=== PATIENT | female | born 1985 | race Caucasian/White ===

== ENCOUNTER 2022-06-21 09:47 | Emergency (ER) | payer MEDICAID ==
[~2022-06-21] VITALS: Ht 162.6 cm; Wt 99.8 kg
[2022-06-21 10:11] VITALS: BP 147/78
--- NOTE | 2022-06-21 10:32 | NUR ---
36/F WALKED IN C/O B/L FOOT PAIN ONSET 1 WK. PT REPORTS PINS AND NEEDLE TO TOES. DENIES HX DM. DENIES INJURY TO FOOT. PMH: DENIES
[2022-06-21 12:48] VITALS: BP 147/78
--- NOTE | 2022-06-21 12:48 | NUR ---
PATIENT LEFT WITHOUT BEING SEEN BY DR. MAX. NO FURTHER CARE PROVIDED FOR PATIENT.
== END 2022-06-21 12:48 | disposition left against medical advice (07) ==
LOC: MED 09:47
DX: M79.671 Pain in right foot (principal); M79.672 Pain in left foot; Z53.21 Procedure and treatment not carried out due to patient leaving prior to being seen by health care provider
CPT/HCPCS: 99281